=== PATIENT | male | born 1955 | race Caucasian/White ===

== ENCOUNTER 2023-10-30 16:06 | Inpatient (IN) | payer OTHER, MEDICAID ==
[~2023-10-30] VITALS: Ht 162.6 cm; Wt 74.8 kg
[2023-10-30 16:08] VITALS: BP_SYST 132; PULSE 92; RESP 20
[2023-10-30 16:59] LABS: ANION GAP 8 (5-15); CALCIUM 9.7 mg/dL (8.4-11.0); CARBON DIOXIDE 32 mmol/L (23-29); CHLORIDE 103 mmol/L (98-107); CREATININE 3.65 mg/dL (0.55-1.30); GFR AFRICAN AMERICAN 21 mL/min (>90); GLUCOSE 88 mg/dL (74-106); POTASSIUM 3.2 mmol/L (3.5-5.1); SODIUM SERUM 143 mmol/L (136-145); UREA NITROGEN, BLOOD 24 mg/dL (8-21)
[2023-10-30 17:03] LABS: GFR NON AFRICAN-AMERICAN 18 mL/min (>90)
[2023-10-30 17:04] LABS: BASOPHILS # (AUTO) 0.1 K/uL (0.0-0.2); BASOPHILS % (AUTO) 0.7 % (0.0-2.0); EOSINOPHILS # (AUTO) 0.1 K/uL (0.0-0.4); EOSINOPHILS % (AUTO) 0.8 % (0.0-4.0); LYMPHOCYTES # (AUTO) 1.5 K/uL (1.0-5.5); LYMPHOCYTES % (AUTO) 17.5 % (20.5-51.5); MEAN CORPUSCULAR HEMOGLOBIN 32 pg (27-31); MEAN CORPUSCULAR HGB CONC 33 % (32-36); MEAN CORPUSCULAR VOLUME 97 fL (79.0-98.0); MONOCYTES # (AUTO) 0.7 K/uL (0.0-1.0); MONOCYTES % (AUTO) 7.7 % (1.7-9.3); NEUTROPHILS # (AUTO) 6.4 K/uL (1.8-7.7); NEUTROPHILS % (AUTO) 73.3 % (40.0-70.0); PLATELET COUNT (AUTO) 199 K/uL (130-430); RED BLOOD CELL COUNT(AUTO) 3.42 MIL/uL (4.2-6.2); RED CELL DISTRIBUTION WIDTH 14.4 % (9.0-15.0); WHITE BLOOD COUNT (AUTO) 8.8 K/uL (4.8-10.8)
[2023-10-30 17:06] LABS: ALANINE AMINOTRANSFERASE 39 U/L (12-78); ALBUMIN 3.3 g/dL (3.4-4.8); ASPARTATE AMINOTRANSFERASE 18 U/L (10-37); BILIRUBIN,DIRECT 0.3 mg/dL (0.0-0.3); TOTAL BILIRUBIN 0.6 mg/dL (0.0-1.0); TOTAL PROTEIN, SERUM 7.4 g/dL (6.4-8.3)
[2023-10-30 17:27] LABS: INR 1.1 (0.80-1.20); PROTHROMBIN TIME 10.9 SECS (9.5-12.5)
[2023-10-30] MEDS: POTASSIUM CHLORIDE 20 MEQ/PKT PACKET PO ONE (18:04)
[2023-10-30] MEDS: cefTRIAXone 1 GM IVPB PREMIX 50 ML IV ONE (18:48)
[2023-10-30] MEDS: NS 250 ML IV ONE (18:48)
[2023-10-30] MEDS ORDERED: MUPIROCIN 2% TOPICAL OINTMENT 22 GM NS PRN (19:00)
[2023-10-30] MEDS ORDERED: LORazepam 2 MG/ML VIAL IVP PRN (19:00)
[2023-10-30] MEDS ORDERED: MORPHINE 2 MG/ML INJ. SYRINGE IVP PRN ×2 (19:00)
[2023-10-30] MEDS ORDERED: ONDANSETRON HCL 4 MG/2 ML VIAL IVP PRN (19:00)
[2023-10-30] MEDS ORDERED: POTASSIUM CHLORIDE 20 MEQ TABLET.ER PO PRN (19:00)
[2023-10-30] MEDS ORDERED: MAGNESIUM SULFATE 50 ML IV PRN (19:00)
[2023-10-30] MEDS ORDERED: DOCUSATE SODIUM 100 MG CAPSULE PO PRN (19:00)
[2023-10-30] MEDS ORDERED: SEVE800T8 PO (19:07)
[2023-10-30] MEDS ORDERED: GLIP10TA11 PO (19:07)
[2023-10-30] MEDS ORDERED: ESOM40CA53 PO (19:07)
[2023-10-30] MEDS ORDERED: ATOR10TA68 PO (19:07)
[2023-10-30] MEDS ORDERED: AMLO5TAB92 PO (19:07)
[2023-10-30 19:13] LABS: BILIRUBIN,URINE NEGATIVE (NEGATIVE); BLOOD, URINE NEGATIVE (NEGATIVE); CLARITY/URINE CLEAR (CLEAR); COLOR,URINE YELLOW (YELLOW); GLUCOSE,URINE NEGATIVE (NEGATIVE); KETONES,URINE NEGATIVE (NEGATIVE); LEUKOCYTE ESTERASE ,URINE NEGATIVE (NEGATIVE); NITRITE, URINE NEGATIVE (NEGATIVE); PH,URINE 8.5 (5.0-8.0); PROTEIN URINE 3+ (NEGATIVE); UROBILINOGEN,URINE 0.2 (0.2-1.0)
[2023-10-30] MEDS ORDERED: ACETAMINOPHEN 500 MG TABLET PO PRN ×3 (19:15)
[2023-10-30 19:26] LABS: BACTERIA,URINE None Seen /HPF (None Seen)
[2023-10-30] MEDS ORDERED: INSULIN LISPRO SLIDING SCALE 100 UNITS/ML, 3 ML VIAL (humaLOG) SUBCUT PRN (19:45)
[2023-10-30] MEDS: HEPARIN SODIUM,PORCINE 5,000 UNITS/ML VIAL SUBCUT SCH (22:20)
[2023-10-31] MEDS: ZOLPIDEM TARTRATE 5 MG TABLET PO PRN (01:37)
[2023-10-31 03:54] LABS: CALCIUM 9.7 mg/dL (8.4-11.0); CREATININE 4.27 mg/dL (0.55-1.30); POTASSIUM 4.5 mmol/L (3.5-5.1)
[2023-10-31 04:19] LABS: BASOPHILS % (AUTO) 0.6 % (0.0-2.0); EOSINOPHILS # (AUTO) 0.1 K/uL (0.0-0.4); EOSINOPHILS % (AUTO) 1.2 % (0.0-4.0); HEMATOCRIT 30.9 % (36-54); HEMOGLOBIN 10.2 g/dL (14.0-18.0); LYMPHOCYTES # (AUTO) 1.6 K/uL (1.0-5.5); LYMPHOCYTES % (AUTO) 25.4 % (20.5-51.5); MEAN CORPUSCULAR HEMOGLOBIN 32 pg (27-31); MEAN CORPUSCULAR HGB CONC 33 % (32-36); MEAN CORPUSCULAR VOLUME 96 fL (79.0-98.0); MONOCYTES # (AUTO) 0.6 K/uL (0.0-1.0); MONOCYTES % (AUTO) 9.1 % (1.7-9.3); NEUTROPHILS % (AUTO) 63.7 % (40.0-70.0); PLATELET COUNT (AUTO) 180 K/uL (130-430); RED BLOOD CELL COUNT(AUTO) 3.22 MIL/uL (4.2-6.2); RED CELL DISTRIBUTION WIDTH 14.5 % (9.0-15.0); WHITE BLOOD COUNT (AUTO) 6.4 K/uL (4.8-10.8)
[2023-10-31] MEDS: amLODIPine BESYLATE 5 MG TABLET PO SCH (08:30)
[2023-10-31] MEDS: ATORVASTATIN 10 MG TABLET PO SCH (08:31)
[2023-10-31] MEDS: SEVELAMER CARBONATE 800 MG TABLET PO SCH (08:31)
[2023-10-31 09:14] VITALS: BP_SYST 149; PULSE 93; RESP 16; TEMP 97.7; O2SAT 95
[2023-10-31 10:27] VITALS: BP_SYST 154; PULSE 81; RESP 16; TEMP 98.8
[2023-10-31 10:30] VITALS: O2SAT 95
[2023-10-31] MEDS ORDERED: CETI10CA11 PO (11:01)
[2023-10-31] MEDS ORDERED: SODI1TAB3 PO (11:01)
[2023-10-31] MEDS ORDERED: FAMO40TA7 PO (11:01)
[2023-10-31] MEDS ORDERED: CALC0.258 PO (11:01)
[2023-10-31] MEDS ORDERED: FOLI0.8T42 PO (11:01)
[2023-10-31 12:27] VITALS: BP_SYST 162; PULSE 84; RESP 16; TEMP 97.7; O2SAT 98
[2023-10-31] MEDS ORDERED: SEVELAMER CARBONATE 800 MG TABLET PO SCH (14:15)
[2023-10-31 16:38] VITALS: BP_SYST 165; PULSE 81; RESP 16; TEMP 97.9; O2SAT 94
[2023-10-31] MEDS: DEXTROSE 50% JECT 50 ML DISP.SYRIN IVP PRN (18:13)
[2023-10-31] MEDS: cefTRIAXone 1 GM in D5W 50 ML IV SCH (18:14)
[2023-10-31 20:00] VITALS: BP_SYST 158; PULSE 98; RESP 18; TEMP 97; O2SAT 99
[2023-11-01 00:39] VITALS: BP_SYST 135; PULSE 85; RESP 18; TEMP 98.6; O2SAT 99
[2023-11-01 04:43] LABS: BASOPHILS # (AUTO) 0.1 K/uL (0.0-0.2); BASOPHILS % (AUTO) 0.6 % (0.0-2.0); EOSINOPHILS # (AUTO) 0.1 K/uL (0.0-0.4); EOSINOPHILS % (AUTO) 1.5 % (0.0-4.0); HEMATOCRIT 32.5 % (36-54); HEMOGLOBIN 10.7 g/dL (14.0-18.0); LYMPHOCYTES # (AUTO) 1.6 K/uL (1.0-5.5); LYMPHOCYTES % (AUTO) 16.8 % (20.5-51.5); MEAN CORPUSCULAR HEMOGLOBIN 32 pg (27-31); MEAN CORPUSCULAR HGB CONC 33 % (32-36); MEAN CORPUSCULAR VOLUME 96 fL (79.0-98.0); MONOCYTES # (AUTO) 0.7 K/uL (0.0-1.0); MONOCYTES % (AUTO) 7.8 % (1.7-9.3); NEUTROPHILS % (AUTO) 73.3 % (40.0-70.0); PLATELET COUNT (AUTO) 195 K/uL (130-430); RED BLOOD CELL COUNT(AUTO) 3.37 MIL/uL (4.2-6.2); RED CELL DISTRIBUTION WIDTH 14.9 % (9.0-15.0); WHITE BLOOD COUNT (AUTO) 9.5 K/uL (4.8-10.8)
[2023-11-01 05:09] LABS: CREATININE 5.46 mg/dL (0.55-1.30); POTASSIUM 5.1 mmol/L (3.5-5.1)
[2023-11-01 08:00] VITALS: BP_SYST 170; PULSE 88; RESP 18; TEMP 96.7; O2SAT 98
[2023-11-01] MEDS: SEVELAMER CARBONATE 800 MG TABLET PO SCH (08:58)
[2023-11-01 09:27] VITALS: O2SAT 96
[2023-11-01] MEDS ORDERED: SYN50 PO (10:05)
[2023-11-01] MEDS ORDERED: cloNIDine HCL 0.2 MG TABLET PO PRN (10:15)
[2023-11-01] MEDS ORDERED: HEPARIN SODIUM,PORCINE 5,000 UNITS/ML VIAL MC ONE (15:00)
[2023-11-01 16:30] VITALS: BP_SYST 100; PULSE 84; RESP 16; TEMP 97.9; O2SAT 98
[2023-11-01 19:26] VITALS: BP_SYST 100; PULSE 84; PULSE 93; RESP 16; TEMP 97.2; TEMP 97.9; O2SAT 78; O2SAT 98
[2023-11-01 20:00] VITALS: BP_SYST 120; PULSE 93; RESP 16; TEMP 97.2; O2SAT 100
[2023-11-01] MEDS ORDERED: CARVEDILOL 6.25 MG TABLET (COREG) PO SCH (21:00)
[2023-11-02] MEDS ORDERED: LOSARTAN POTASSIUM 25 MG TABLET PO SCH (09:00)
== END 2023-11-01 21:00 | disposition home or self-care (01) | DRG 637 ==
LOC: SED 16:06 → STU 18:57 → SMU 10-31 19:27 → STU 11-01 07:03
PROVIDERS: ADMIT General Practice; ATTEND General Practice
PROC: 5A1D70Z Performance of Urinary Filtration, Intermittent, Less than 6 Hours Per Day (ICD-10-PCS; principal; 2023-10-31)
DX: E11.649 Type 2 diabetes mellitus with hypoglycemia without coma (principal); G93.41 Metabolic encephalopathy; I50.43 Acute on chronic combined systolic (congestive) and diastolic (congestive) heart failure; E44.1 Mild protein-calorie malnutrition; I42.9 Cardiomyopathy, unspecified; I13.2 Hypertensive heart and chronic kidney disease with heart failure and with stage 5 chronic kidney disease, or end stage renal disease; E87.20 Acidosis, unspecified; N17.0 Acute kidney failure with tubular necrosis; N18.6 End stage renal disease; D63.8 Anemia in other chronic diseases classified elsewhere; Z68.28 Body mass index [BMI] 28.0-28.9, adult; I25.2 Old myocardial infarction; E78.5 Hyperlipidemia, unspecified; E11.22 Type 2 diabetes mellitus with diabetic chronic kidney disease; K21.9 Gastro-esophageal reflux disease without esophagitis; E78.00 Pure hypercholesterolemia, unspecified; E03.9 Hypothyroidism, unspecified; Z99.2 Dependence on renal dialysis; R26.81 Unsteadiness on feet; I25.10 Atherosclerotic heart disease of native coronary artery without angina pectoris; Z91.199 Patient's noncompliance with other medical treatment and regimen due to unspecified reason
CPT/HCPCS: 36415; 71045; 80048; 80076; 81000; 81001; 81003; 81015; 82948; 83037; 83605; 83735; 83880; 84443; 84484; 85025; 85610; 85730; 87040; 87081; 87086; 90935; 93005; 93306; 96365; 97112-GP; 97116-GP; 99285; G0378; J0696; J1644; J7060